=== PATIENT | male | born 1960 | race Caucasian/White ===

== ENCOUNTER 2019-10-31 07:09 | Day surgery (SDC) | payer BC ==
[~2019-10-31 07:09] MED LIST: Lactated Ringers 1,000 ML IV SCH; Midazolam 1 MG/ML 2 ML SDV ONE; Propofol 200 MG/20 ML SDV ONE; Sodium Chloride 0.9% 10 ML SDV IV PRN; Sodium Chloride 0.9% 10 ML Syringe FLUSH PRN; Sodium Chloride 0.9% 2.5 ML Syringe FLUSH PRN; fentaNYL 100 MCG/2 ML SDV ONE
--- NOTE | 2019-10-31 09:12 | PCM.PREANE ---
Preanesthetic Assessment - Anesthesia/Transfusion/Family Hx Anesthesia History: Prior Anesthesia Without Reaction Family History of Anesthesia Reaction: No Transfusion History: No Prior Transfusion(s) Intubation History: Unknown - Review of Systems General: No Symptoms Pulmonary: No Symptoms Cardiovascular: No Symptoms Gastrointestinal: No Symptoms, Other (family h/o colon polyps) Neurological: No Symptoms Other: Reports: None - Physical Assessment Vital Signs: Last Vital Signs Temp 37.0 C 10/31/19 07:35 Pulse 68 10/31/19 07:35 Resp 16 10/31/19 07:35 BP 147/88 H 10/31/19 07:35 Pulse Ox 95 10/31/19 07:35 Height: 6 ft 2 in Weight: 125.645 kg ASA Class: 3 Mental Status: Alert & Oriented x3 Airway Class: Mallampati = 2 Dentition: Reports: Normal Dentition, Broken Tooth/Teeth (small chip upper front incisor, broken tooth left lower (back)) Thyro-Mental Finger Breadths: 3 Mouth Opening Finger Breadths: 3 ROM/Head Extension: Limited/Partial Lungs: Clear to Auscultation, Normal Respiratory Effort Cardiovascular: Regular Rate, Regular Rhythm - Allergies Allergies/Adverse Reactions: Allergies Allergy/AdvReac Type Severity Reaction Status Date / Time No Known Allergies Allergy Verified 10/31/19 08:33 - Blood Blood Available: No - Anesthesia Plan Pre-Op Medication Ordered: None - Acknowledgements Anesthesia Type Planned: MAC Pt an Appropriate Candidate for the Planned Anesthesia: Yes Alternatives and Risks of Anesthesia Discussed w Pt/Guardian: Yes Pt/Guardian Understands and Agrees with Anesthesia Plan: Yes PreAnesthesia Questionnaire HEENT History: Reports: Other (See Below) Other HEENT History: wears glasses Cardiovascular History: Reports: Hypertension, Other (See Below) (mild dislipidemia) Respiratory History: Reports: Asthma (moderate), Sleep Apnea Other Respiratory History: uses CPAP nightly, uses a maintenance inhaler for asthma- no rescue inhaler Gastrointestinal History: Reports: Other (See Below) Other Gastrointestinal History: occasional heartburn - takes OTC Pepsid Musculoskeletal History: Reports: Gout Neurological History: Reports: Concussion Endocrine/Metabolic History: Reports: Obesity/BMI 30+ (BMI 35.6) - Past Surgical History Head Surgeries/Procedures: Reports: None HEENT Surgical History: Reports: Oral Surgery Other HEENT Surgeries/Procedures: has 1 upper dental implant GI Surgical History: Reports: Colonoscopy ( and ) Male Surgical History: Reports: Vasectomy Neurological Surgical History: Reports: Laminectomy, Lumbar Spine - SUBSTANCE USE Smoking Status *Q: Never Smoker Days Per Week of Alcohol Use: 3 Recreational Drug Use History: No - HOME MEDS Home Medications: Home Meds Aspirin [[place] Aspirin EC] 81 mg PO DAILY 09/20/17 [History] Fluticasone/Salmeterol [Advair 250-50 Diskus] 1 inhalation INH BID 09/20/17 [ History] Losartan Potassium 100 mg PO QAM 09/20/17 [History] Sildenafil Citrate 1 - 3 tab PO ASDIRECTED PRN 09/20/17 [History] amLODIPine Besylate [Amlodipine Besylate] 10 mg PO QAM 09/20/17 [History] dexAMETHasone [Dexamethasone] 2 tab PO ASDIRECTED PRN 10/25/19 [History] - CURRENT (IN HOUSE) MEDS Current Meds: Current Medications Lactated Ringer's (Ringers, Lactated) 1,000 mls @ 125 mls/hr IV ASDIRECTED [place] Last Admin: 10/31/19 08:32 Dose: 125 mls/hr Sodium Chloride (Saline Flush) 10 ml FLUSH ASDIRECTED PRN PRN Reason: Keep Vein Open Sodium Chloride (Saline Flush) 2.5 ml FLUSH ASDIRECTED PRN PRN Reason: Keep Vein Open Sodium Chloride (Saline Flush) 10 ml FLUSH ASDIRECTED PRN PRN Reason: Keep Vein Open Sodium Chloride (Saline Flush) 2.5 ml FLUSH ASDIRECTED PRN PRN Reason: Keep Vein Open Sodium Chloride (Normal Saline) 10 ml IV ASDIRECTED PRN PRN Reason: IV Use Discontinued Medications Fentanyl (Sublimaze) Confirm Administered Dose 100 mcg .ROUTE .STK-MED ONE Stop: 10/31/19 07:08 Midazolam HCl (Versed 1 Mg/Ml) Confirm Administered Dose 2 mg .ROUTE .STK-MED ONE Stop: 10/31/19 07:08 Propofol (Diprivan 20 Ml) Confirm Administered Dose 200 mg .ROUTE .STK-MED ONE Stop: 10/31/19 07:08
[2019-10-31] MEDS ORDERED: Propofol 200 MG/20 ML SDV ONE ×2 (09:33→09:46)
--- NOTE | 2019-10-31 10:04 | PCM.OPNOTE ---
- General Post-Op/Procedure Note Date of Surgery/Procedure: 10/31/19 Operative Procedure(s): Diagnostic colonoscopy with polypectomy Findings: transverse colon polyp, rectal polyp, diverticulosis Pre Op Diagnosis: Family history of colon cancer Post-Op Diagnosis: transverse colon polyp rectal polyp diverticulosis Anesthesia Technique: [facility] [place] Primary Surgeon: Jaclyn Keen Condition: Good
--- NOTE | 2019-10-31 10:19 | PCM.POSTAN ---
POST ANESTHESIA ASSESSMENT - MENTAL STATUS Mental Status: Alert, Oriented - VITAL SIGNS Vital Signs: Last Vital Signs Temp 36.3 C 10/31/19 10:00 Pulse 69 10/31/19 10:15 Resp 16 10/31/19 10:15 BP 108/42 L 10/31/19 10:15 Pulse Ox 94 L 10/31/19 10:15 - RESPIRATORY Respiratory Status: Respiratory Rate WNL, Airway Patent, O2 Saturation Stable - CARDIOVASCULAR CV Status: Pulse Rate WNL, Blood Pressure Stable - GASTROINTESTINAL GI Status: No Symptoms - PAIN Pain Score: 0 - POST OP HYDRATION Hydration Status: Adequate & Stable - OBSERVATIONS Free Text/Narrative:: No anesthesia problems
--- NOTE | 2019-10-31 10:37 | PCM48HPAN ---
Post Anesthesia Note - EVALUATION WITHIN 48HRS OF ANESTHETIC Vital Signs in Normal Range: Yes Patient Participated in Evaluation: Yes Respiratory Function Stable: Yes Airway Patent: Yes Cardiovascular Function Stable: Yes Hydration Status Stable: Yes Pain Control Satisfactory: Yes Nausea and Vomiting Control Satisfactory: Yes Mental Status Recovered: Yes Vital Signs: Last Vital Signs Temp 36.3 C 10/31/19 10:00 Pulse 69 10/31/19 10:15 Resp 16 10/31/19 10:15 BP 108/42 L 10/31/19 10:15 Pulse Ox 94 L 10/31/19 10:15 - COMMENTS/OBSERVATIONS Free Text/Narrative:: No anesthesia problems
--- NOTE | 2019-11-01 15:56 | OR ---
SURGEON: JACLYN KEEN MD DATE OF PROCEDURE: 10/31/2019 PREOPERATIVE DIAGNOSES: Screening colonoscopy, family history of colon cancer. POSTOPERATIVE DIAGNOSES: 1. Diverticulosis. 2. Transverse colon polyp. 3. Rectal polyp. PROCEDURE PERFORMED: Diagnostic colonoscopy with polypectomy. PRIMARY SURGEON: Jaclyn Keen MD. ANESTHESIA: MAC. INSTRUMENT USED: Olympus colonoscope. EXTENT OF EXAM: To the cecum. PREPARATION: Good. LIMITATIONS: None. INDICATIONS FOR EXAMINATION: The patient is a 58-year-old male who presents for a 5-year followup colonoscopy. His father had colon cancer. The patient and I discussed the need for the procedure; expected perioperative course; and the risks including bleeding, infection, or damage to surrounding structures. He verbalized understanding and wishes to proceed. PROCEDURE IN DETAIL: The patient was brought into the endoscopy suite and placed in the left lateral decubitus position. A time-out was completed verifying the patient's name, age, date of , allergies, and procedure to be performed. Monitored anesthesia care was induced and continuous oxygen was provided via nasal cannula throughout the procedure. After adequate sedation was achieved, a digital rectal exam was performed. This exam was within normal limits. A well-lubricated colonoscope was inserted in the rectum and advanced under direct visualization to the level of the cecum. The cecum was identified by both visual and anatomic landmarks. A photograph was taken of the cecal cap; however, I was unable to retroflex the scope within the cecum. The scope was then fully withdrawn while examining the color, texture, anatomy, and integrity of the mucosa from the cecum to the anal canal. The patient was found to have sigmoid colon diverticulosis. There was a proximal transverse colon polyp, which was removed in piecemeal fashion using cold biopsy forceps. The scope was brought into the rectum. A small rectal polyp was noted there. This was removed in piecemeal fashion using cold biopsy forceps. The scope was then retroflexed to allow visualization of the anal canal opening. This appeared normal and a photograph was taken. The scope was then straightened out and fully withdrawn. The cecum to anus time was 14 minutes. The patient tolerated the procedure well and was transferred to the PACU in stable condition. ENDOSCOPIC DIAGNOSES: 1. Diverticulosis. 2. Transverse colon polyp. 3. Rectal polyp. RECOMMENDATIONS: Follow up in clinic in 2 weeks. LARISSA RAJAN /[id number]
== END 2019-10-31 10:42 | disposition home or self-care (01) ==
LOC: MW.SDS 07:09
PROVIDERS: ATTEND Surgery
DX: Z12.11 Encounter for screening for malignant neoplasm of colon (principal); D12.3 Benign neoplasm of transverse colon; K62.1 Rectal polyp; K57.30 Diverticulosis of large intestine without perforation or abscess without bleeding; J45.40 Moderate persistent asthma, uncomplicated; I10 Essential (primary) hypertension; E78.2 Mixed hyperlipidemia; G47.33 Obstructive sleep apnea (adult) (pediatric); M10.9 Gout, unspecified; Z80.0 Family history of malignant neoplasm of digestive organs; Z99.89 Dependence on other enabling machines and devices; Z79.82 Long term (current) use of aspirin; Z79.52 Long term (current) use of systemic steroids; Z79.899 Other long term (current) drug therapy
CPT/HCPCS: 45380; J2250; J2704; J3010; J7120; 00812

== ENCOUNTER 2022-05-26 10:20 | Day surgery (SDC) | payer BC, OTHER ==
[~2022-05-26 10:20] MED LIST changes: +Bupivacaine 0.5% 30 ML SDV ONE; -Midazolam 1 MG/ML 2 ML SDV ONE; +Octyl 2-Cyanoacrylate 1 g/1 mL 1 APPLIC PEN ONE; -Propofol 200 MG/20 ML SDV ONE; +Ropivacaine 0.5% 5 MG/ML 30 ML SDV ONE; -Sodium Chloride 0.9% 10 ML SDV IV PRN; +Sodium Chloride 0.9% 20 ML SDV IV PRN; +cefOXitin 2 GM in Premix Bag 1 BAG IV ONE; -fentaNYL 100 MCG/2 ML SDV ONE
[2022-05-26] MEDS ORDERED: HYDROmorphone 1 MG/ML Syringe IVPUSH PRN (10:53)
[2022-05-26] MEDS ORDERED: Ondansetron 4 MG/2 ML SDV IVPUSH PRN (10:53)
[2022-05-26] MEDS ORDERED: fentaNYL 50 MCG/ML SDV IVPUSH PRN (10:53)
[2022-05-26] MEDS ORDERED: Albuterol 0.083% 2.5 MG/3 ML Neb Soln NEB PRN (10:53)
[2022-05-26] MEDS ORDERED: Metoclopramide 10 MG/2 ML SDV IVPUSH PRN (10:53)
[2022-05-26] MEDS ORDERED: Naloxone 0.4 MG/ML SDV IVPUSH PRN (10:53)
[2022-05-26] MEDS ORDERED: Dexamethasone 4 MG/ML 5 ML MDV ONE (10:58)
[2022-05-26] MEDS ORDERED: Midazolam 1 MG/ML 2 ML SDV ONE (10:58)
[2022-05-26] MEDS ORDERED: fentaNYL 100 MCG/2 ML SDV ONE (10:58)
[2022-05-26] MEDS ORDERED: Propofol 200 MG/20 ML SDV ONE (10:58)
[2022-05-26] MEDS ORDERED: Rocuronium Bromide 50 MG/5 ML Syringe ONE (10:58)
[2022-05-26] MEDS ORDERED: Ondansetron 4 MG/2 ML SDV ONE (10:58)
[2022-05-26] MEDS ORDERED: Lidocaine 2% 5 ML SDV ONE (10:58)
[2022-05-26] MEDS ORDERED: Sugammadex Sodium 200 MG/2 ML VIAL ONE (10:58)
[2022-05-26] MEDS ORDERED: Phenylephrine HCl In 0.9% NaCl 1 MG/10 ML Vial ONE (11:44)
== END 2022-05-26 13:45 | disposition home or self-care (01) ==
LOC: MW.SDS 10:20
PROVIDERS: ATTEND Surgery
DX: K42.9 Umbilical hernia without obstruction or gangrene (principal); J45.40 Moderate persistent asthma, uncomplicated; I10 Essential (primary) hypertension; E78.2 Mixed hyperlipidemia; G47.33 Obstructive sleep apnea (adult) (pediatric); Z98.890 Other specified postprocedural states; Z79.899 Other long term (current) drug therapy; Z79.82 Long term (current) use of aspirin; E66.9 Obesity, unspecified; Z68.36 Body mass index [BMI] 36.0-36.9, adult
CPT/HCPCS: 49585; J0694; J1100; J2250; J2405; J2704; J2795; J3010; J3490; J7120; 00750; 64488

== ENCOUNTER 2023-03-22 08:14 | Emergency (ER) | payer BC ==
[2023-03-22 09:10] LABS: BASOPHILS PERCENT AUTO 0.6 % (0.0-1.5); EOSINOPHILS ABSOLUTE AUTO 0.6 K/uL (0.0-0.7); EOSINOPHILS PERCENT AUTO 8.5 % (0.0-7.0); HEMATOCRIT 43.5 % (38.0-50.0); HEMOGLOBIN 15.5 g/dL (13.0-17.0); LYMPHOCYTES ABSOLUTE AUTO 1.8 K/uL (0.6-2.4); LYMPHOCYTES PERCENT AUTO 27.9 % (16.0-40.0); MEAN CORPUSCULAR HEMOGLOBIN 29.5 pg (27.0-32.0); MEAN CORPUSCULAR HGB CONC 35.6 g/dL (31.0-37.0); MEAN CORPUSCULAR VOLUME 82.9 fL (80.0-98.0); MONOCYTES ABSOLUTE AUTO 0.9 K/uL (0.0-0.8); MONOCYTES PERCENT AUTO 13.3 % (0.0-15.0); NEUTROPHILS ABSOLUTE AUTO 3.2 K/uL (1.4-5.7); NEUTROPHILS PERCENT AUTO 49.7 % (48.0-80.0); NRBC ABSOLUTE 0 K/uL; PLATELET COUNT,PLT 256 K/uL (150-400); RED BLOOD CELL COUNT 5.25 M/uL (4.50-5.90); WHITE BLOOD CELL COUNT,WBC 6.49 K/uL (4.0-11.0)
[2023-03-22] MEDS ORDERED: Ibuprofen 400 MG Tab PO STA (09:19)
[2023-03-22] MEDS ORDERED: Acetaminophen 325 MG Tab PO ONE (09:19)
[2023-03-22 09:33] LABS: A/G RATIO 0.9 (0.9-1.6); ALBUMIN 3.5 g/dL (3.4-5.0); BILIRUBIN TOTAL 1.1 mg/dL (0.2-1.0); CALCIUM 8.5 mg/dL (8.5-10.1); CARBON DIOXIDE,CO2 28.2 mmol/L (21.0-32.0); EST CRCL DRUG DOSING (CG) 87.67 mL/min; POTASSIUM,K 4.3 mmol/L (3.5-5.1); PROTEIN TOTAL,TP 7.3 g/dL (6.4-8.2)
== END 2023-03-22 11:02 | disposition home or self-care (01) ==
LOC: MW.ED 08:14
DX: R07.89 Other chest pain (principal); I10 Essential (primary) hypertension; J45.909 Unspecified asthma, uncomplicated; E66.9 Obesity, unspecified; Z79.82 Long term (current) use of aspirin; Z79.51 Long term (current) use of inhaled steroids; Z68.36 Body mass index [BMI] 36.0-36.9, adult
CPT/HCPCS: 36415; 71045; 71045-26; 80053; 84484; 85025; 93005; 99285

== ENCOUNTER 2023-06-07 14:25 | Emergency (ER) | payer BC ==
[2023-06-07] MEDS ORDERED: Promethazine 25 MG/ML SDV IM ONE (15:49)
[2023-06-07] MEDS ORDERED: Ketorolac 30 MG/ML SDV IVPUSH ONE (15:49)
[2023-06-07] MEDS ORDERED: Sodium Chloride 0.9% 1,000 ML IV ONE (16:06)
[2023-06-07 16:20] LABS: BASOPHILS PERCENT AUTO 0.1 % (0.0-1.5); EOSINOPHILS PERCENT AUTO 0.1 % (0.0-7.0); HEMATOCRIT 43.1 % (38.0-50.0); HEMOGLOBIN 15.2 g/dL (13.0-17.0); LYMPHOCYTES PERCENT AUTO 13.5 % (16.0-40.0); MEAN CORPUSCULAR HEMOGLOBIN 29.3 pg (27.0-32.0); MEAN CORPUSCULAR HGB CONC 35.3 g/dL (31.0-37.0); MONOCYTES ABSOLUTE AUTO 0.6 K/uL (0.0-0.8); MONOCYTES PERCENT AUTO 7.6 % (0.0-15.0); NEUTROPHILS PERCENT AUTO 78.7 % (48.0-80.0); NRBC ABSOLUTE 0 K/uL; PLATELET COUNT,PLT 196 K/uL (150-400); RED BLOOD CELL COUNT 5.19 M/uL (4.50-5.90); WHITE BLOOD CELL COUNT,WBC 7.65 K/uL (4.0-11.0)
[2023-06-07 16:47] LABS: ALBUMIN 3.6 g/dL (3.4-5.0); BILIRUBIN TOTAL 1.9 mg/dL (0.2-1.0); CALCIUM 8.3 mg/dL (8.5-10.1); CARBON DIOXIDE,CO2 25.7 mmol/L (21.0-32.0); CREATININE 1.2 mg/dL (0.8-1.3); EST CRCL DRUG DOSING (CG) 73.06 mL/min; POTASSIUM,K 3.5 mmol/L (3.5-5.1); PROTEIN TOTAL,TP 7.1 g/dL (6.4-8.2)
[2023-06-07] MEDS ORDERED: Lidocaine 4% 1 each Patch TOP PRN (18:12)
== END 2023-06-07 19:12 | disposition home or self-care (01) ==
LOC: MW.ED 14:25
DX: J01.20 Acute ethmoidal sinusitis, unspecified (principal); I10 Essential (primary) hypertension; J45.909 Unspecified asthma, uncomplicated; M10.9 Gout, unspecified; E66.9 Obesity, unspecified; Z68.35 Body mass index [BMI] 35.0-35.9, adult; Z79.82 Long term (current) use of aspirin; Z79.899 Other long term (current) drug therapy; Z20.822 Contact with and (suspected) exposure to COVID-19
CPT/HCPCS: 36415; 70450; 71045; 80053; 84484; 85025; 87635; 93005; 96361; 96372; 96374; 99284; A9270; J1885; J2550; J7030; 93010; U0002

== ENCOUNTER 2023-06-08 16:06 | Emergency (ER) | payer BC ==
[2023-06-08] MEDS ORDERED: cefTRIAXone 2 GM in Sodium Chloride 0.9% 50 ML IV ONE (16:11)
[2023-06-08] MEDS ORDERED: Sodium Chloride 0.9% 10 ML Syringe FLUSH PRN (16:11)
[2023-06-08] MEDS ORDERED: Sodium Chloride 0.9% 2.5 ML Syringe FLUSH PRN (16:11)
[2023-06-08] MEDS ORDERED: Dexamethasone 10 MG/ML SDV IVPUSH ONE (16:11)
[2023-06-08] MEDS ORDERED: Sodium Chloride 0.9% 1,000 ML IV ONE (16:11)
[2023-06-08] MEDS ORDERED: Acetaminophen 500 MG Tab PO ONE (16:14)
[2023-06-08 16:22] LABS: BICARBONATE,ARTERIAL 20 mEq/L (22-26); PCO2 ARTERIAL 24 mmHG (35-45); PO2 ARTERIAL 68 mmHG (80-105)
[2023-06-08 16:38] LABS: BASOPHILS PERCENT AUTO 0.2 % (0.0-1.5); HEMATOCRIT 40.6 % (38.0-50.0); HEMOGLOBIN 14.3 g/dL (13.0-17.0); LYMPHOCYTES ABSOLUTE AUTO 1.8 K/uL (0.6-2.4); LYMPHOCYTES PERCENT AUTO 16.8 % (16.0-40.0); MEAN CORPUSCULAR HEMOGLOBIN 28.7 pg (27.0-32.0); MEAN CORPUSCULAR HGB CONC 35.2 g/dL (31.0-37.0); MEAN CORPUSCULAR VOLUME 81.5 fL (80.0-98.0); MONOCYTES ABSOLUTE AUTO 1.5 K/uL (0.0-0.8); MONOCYTES PERCENT AUTO 14.1 % (0.0-15.0); NEUTROPHILS ABSOLUTE AUTO 7.4 K/uL (1.4-5.7); NEUTROPHILS PERCENT AUTO 68.9 % (48.0-80.0); NRBC ABSOLUTE 0 K/uL; PLATELET COUNT,PLT 161 K/uL (150-400); RED BLOOD CELL COUNT 4.98 M/uL (4.50-5.90); WHITE BLOOD CELL COUNT,WBC 10.76 K/uL (4.0-11.0)
[2023-06-08 17:09] LABS: A/G RATIO 0.9 (0.9-1.6); ALANINE AMINOTRANSFERASE,ALT 32 IU/L (14-63); ALBUMIN 3.1 g/dL (3.4-5.0); ALKALINE PHOSPHATASE 56 U/L (46-116); ASPARTATE AMNIOTRANSFERASE,AST 21 IU/L (15-37); BILIRUBIN TOTAL 1.7 mg/dL (0.2-1.0); BLOOD UREA NITROGEN,BUN 21 mg/dL (7.0-18.0); CARBON DIOXIDE,CO2 22.5 mmol/L (21.0-32.0); CHLORIDE,CL 100 mmol/L (98-107); CREATININE 1.5 mg/dL (0.8-1.3); GLUCOSE RANDOM 139 mg/dL (74-106); MAGNESIUM 1.5 mg/dL (1.8-2.4); PROTEIN TOTAL,TP 6.6 g/dL (6.4-8.2); SODIUM,NA 136 mmol/L (136-148)
[2023-06-08 17:10] LABS: ESTIMATED GFR 53 mL/min (>60)
[2023-06-08 17:12] LABS: ETHANOL BLOOD MEDICAL < 3.0 mg/dL
[2023-06-08] MEDS ORDERED: Heparin Sodium 5,000 Units/ML Vial IVPUSH ONE (17:19)
[2023-06-08] MEDS ORDERED: Magnesium Sulfate/Water 2 GM in Premix Bag 1 BAG IV ONE (17:19)
[2023-06-08] MEDS ORDERED: Aspirin 325 MG Tab PO ONE (17:19)
[2023-06-08] MEDS ORDERED: Tenecteplase 50 MG Kit IV ONE (17:19)
[2023-06-08] MEDS ORDERED: Aspirin 81 MG Tab.Chew PO ONE (17:19)
[2023-06-08] MEDS ORDERED: Aspirin 81 MG Tab.EC PO ONE (17:19)
[2023-06-08] MEDS ORDERED: Clopidogrel 75 MG Tab PO ONE (17:28)
[2023-06-08] MEDS ORDERED: Heparin Sodium/0.45% NaCl 500 ML IV SCH (17:30)
[2023-06-08] MEDS ORDERED: Potassium Chloride 20 MEQ in Premix Bag 1 BAG IV ONE (17:30)
[2023-06-08] MEDS ORDERED: Sodium Chloride 0.9% 250 ML IV ONE (17:30)
[2023-06-08 17:31] LABS: CORONAVIRUS COVID-19 NAA NEGATIVE (NEGATIVE); INFLUENZA A NAA NEGATIVE (NEGATIVE); INFLUENZA B NAA NEGATIVE (NEGATIVE)
[2023-06-08 17:43] LABS: INR 1.23 (0.86-1.11)
== END 2023-06-08 20:04 ==
LOC: MW.ED 16:06
DX: A41.9 Sepsis, unspecified organism (principal); I21.3 ST elevation (STEMI) myocardial infarction of unspecified site; E87.6 Hypokalemia; E83.42 Hypomagnesemia; R50.9 Fever, unspecified; I10 Essential (primary) hypertension; J45.909 Unspecified asthma, uncomplicated; M10.9 Gout, unspecified; E66.9 Obesity, unspecified; Z68.37 Body mass index [BMI] 37.0-37.9, adult; Z20.822 Contact with and (suspected) exposure to COVID-19; Z79.82 Long term (current) use of aspirin; Z79.899 Other long term (current) drug therapy
CPT/HCPCS: 0240U; 36415; 36600; 37195; 70450; 71045; 80053; 80307; 82803; 83735; 84484; 85025; 85610; 87040; 93005; 96361; 96365; 96366; 96367; 96368; 96375; 99291; 99292; A9270; J0696; J1100; J1644; J3101; J3475; J3480; J3490; J7030; J7050; 93010

== ENCOUNTER 2024-11-02 08:52 | Day surgery (SDC) | payer BC ==
[~2024-11-02 08:52] MED LIST changes: -Bupivacaine 0.5% 30 ML SDV ONE; -Lactated Ringers 1,000 ML IV SCH; -Octyl 2-Cyanoacrylate 1 g/1 mL 1 APPLIC PEN ONE; -Ropivacaine 0.5% 5 MG/ML 30 ML SDV ONE; -cefOXitin 2 GM in Premix Bag 1 BAG IV ONE
[2024-11-02] MEDS: Lactated Ringers 1,000 ML IV SCH (09:15)
[2024-11-02] MEDS ORDERED: propofoL 500 MG/50 ML 50 ML ONE (09:47)
[2024-11-02] MEDS ORDERED: Lidocaine 2% 5 ML SDV ONE (09:47)
== END 2024-11-02 11:20 | disposition home or self-care (01) ==
LOC: MW.SDS 08:52
PROVIDERS: ATTEND Surgery
DX: Z12.11 Encounter for screening for malignant neoplasm of colon (principal); D12.0 Benign neoplasm of cecum; K57.30 Diverticulosis of large intestine without perforation or abscess without bleeding; Z86.0100 Personal history of colon polyps, unspecified; J45.40 Moderate persistent asthma, uncomplicated; I10 Essential (primary) hypertension; E78.2 Mixed hyperlipidemia; G47.33 Obstructive sleep apnea (adult) (pediatric); Z79.899 Other long term (current) drug therapy
CPT/HCPCS: 45380; J2704; J7120; 00811; J3490